=== PATIENT | male | born 1950 | race Two or more races ===

== ENCOUNTER 2016-06-24 13:25 | Emergency (ER) | payer OTHER ==
[~2016-06-24] VITALS: Ht 182.9 cm; Wt 99.8 kg
[2016-06-24 13:31] VITALS: BP 134/75
== END 2016-06-24 16:00 | disposition home or self-care (01) ==
LOC: ED 13:25
DX: S51.811A Laceration without foreign body of right forearm, initial encounter (principal); I10 Essential (primary) hypertension; W22.8XXA Striking against or struck by other objects, initial encounter; Y93.89 Activity, other specified; Y99.8 Other external cause status; Y92.89 Other specified places as the place of occurrence of the external cause
CPT/HCPCS: 90715